=== PATIENT | female | born 1960 | race Caucasian/White ===

== ENCOUNTER 2019-08-08 14:51 | Emergency (ER) | payer BC ==
[2019-08-08 15:21] VITALS: BP 147/78
--- NOTE | 2019-08-08 15:27 | UC ---
Skin Complaint HPI - HPI Summary HPI Summary: Patient is 59yo female presenting with rash on right leg x6 days. States she went hiking in [place] last week but does not recall coming into contact with any plants that would cause contact dermatitis. Notes minimal itching and some tenderness, but no pain. Denies any drainage. Has put neosporin on it without relief. Notes increasing redness of the rash. Denies fever, chills, n/v. Denies rash anywhere else on body. - History of Current Complaint Chief Complaint: UCSkin Stated Complaint: RIGHT LEG SKIN Hx Obtained From: Patient Hx Last Menstrual Period: 04/08/14 Onset/Duration: Gradual Onset, Lasting Days Pain Intensity: 0 - Allergy/Home Medications Allergies/Adverse Reactions: Allergies Allergy/AdvReac Type Severity Reaction Status Date / Time No Known Allergies Allergy Verified 08/08/19 15:21 PMH/Surg Hx/FS Hx/Imm Hx Previously Healthy: Yes - Surgical History Surgical History: Yes Surgery Procedure, Year, and Place: C-sections - Family History Known Family History: Positive: Non-Contributory - Social History Alcohol Use: Occasionally Substance Use Type: None Smoking Status (MU): Never Smoked Tobacco Review of Systems All Other Systems Reviewed And Are Negative: Yes Constitutional: Positive: Negative Skin: Positive: Rash Eyes: Positive: Negative ENT: Positive: Negative Respiratory: Positive: Negative Cardiovascular: Positive: Negative Gastrointestinal: Positive: Negative Neurovascular: Positive: Negative Musculoskeletal: Positive: Negative Neurological: Positive: Negative Physical Exam Triage Information Reviewed: Yes Appearance: Well-Appearing, No Pain Distress, Well-Nourished Vital Signs: Initial Vital Signs Temp 99.8 F 08/08/19 15:16 Pulse 60 08/08/19 15:16 Resp 16 08/08/19 15:16 BP 147/78 08/08/19 15:16 Pulse Ox 98 08/08/19 15:16 Vital Signs Reviewed: Yes Eyes: Positive: Conjunctiva Clear ENT: Positive: Hearing grossly normal Neck: Positive: Supple Respiratory: Positive: No respiratory distress Cardiovascular: Positive: Pulses Normal Musculoskeletal Exam: Normal Musculoskeletal: Positive: ROM Intact, No Edema Neurological: Positive: Alert Psychological: Positive: Age Appropriate Behavior Skin: Positive: Rashes - multiple vesicles on an erythematous base noted on interior right thigh. no drainage noted. no tenderness to palpation. no fluctuance. there is increased warmth of area. Course/Dx - Course Course Of Treatment: Dr. Hernandez also examined patient. Unsure if rash is shingles or contact dermatitis, but it appears it may be infected. Patient is being treated for cellulitis and itching/inflammation with Keflex and medrol dose guillermo. Patient voiced understanding and agreed to treatment plan. - Diagnoses Provider Diagnosis: Cellulitis Discharge ED - Sign-Out/Discharge Documenting (check all that apply): Patient Departure All imaging exams completed and their final reports reviewed: No Studies - Discharge Plan Condition: Stable Disposition: HOME Prescriptions: Cephalexin CAP* [Keflex CAP*] 500 mg PO TID #21 cap methylPREDNISolone [Medrol] 4 mg PO .SEE GUILLERMO INSTRUCTION #1 tab.ds.pk Patient Education Materials: Diphtheria/Acellular Pertussis/Tetanus Booster Vaccine (By injection), Cellulitis (ED) Referrals: [facility] [Outside] - If Needed Additional Instructions: As discussed, take keflex as prescribed for possible skin infection. Take the medrol dose guillermo as prescribed to help with inflammation and itching. You also received your tetanus booster today. Return or follow up with [facility] is rash persists or worsens. - Billing Disposition and Condition Condition: STABLE Disposition: Home - Attestation Statements Provider Attestation: I was available for consult. This patient was seen by the BENITA. The patient was not presented to, seen by, or examined by me. -Makenzie
[2019-08-08] MEDS ORDERED: Tetan/Diph/Pertus SYR(Tdap)* 0.5 ML SYR(BOOSTRIX) use SYR contains LATEX IM ONE (15:42)
== END 2019-08-08 15:51 | disposition home or self-care (01) ==
LOC: UCCORT 14:51
DX: L03.115 Cellulitis of right lower limb (principal)
CPT/HCPCS: 90715; 99202; G0463